=== PATIENT | female | born 1975 | race Caucasian/White ===

== ENCOUNTER 2017-04-12 07:34 | Day surgery (SDC) | payer OTHER ==
[2017-04-12] MEDS ORDERED: methylPREDNISolone NA SUCC 125 MG/2 ML VIAL IVPB ONE (09:00)
[2017-04-12] MEDS ORDERED: ACETAMINOPHEN 500 MG TABLET (FP) PO ONE (09:00)
[2017-04-12] MEDS ORDERED: diphenhydrAMINE HCL 25 MG CAPSULE (FP) PO ONE (09:00)
[2017-04-12 09:34] LABS: MCH 21.4 pg (25.7-33.7); MEAN PLT VOLUME 7.9 fl (7.5-11.1); PLATELET COUNT 368 K/MM3 (134-434); WHITE BLOOD COUNT 7.4 K/mm3 (4.0-10.0)
[2017-04-12 09:56] LABS: ALBUMIN 3.3 g/dl (3.4-5.0); ANION GAP 7 (8-16); CALCIUM 8.2 mg/dL (8.5-10.1); CO2 24 mmol/L (21-32); CREATININE 0.6 mg/dL (0.55-1.02); GLUCOSE,RANDOM 75 mg/dL (74-106); SGOT/AST 27 U/L (15-37); SGPT/ALT 28 U/L (12-78)
[2017-04-12 09:58] LABS: ALK PHOS 146 U/L (45-117); BILIRUBIN,TOTAL 0.2 mg/dL (0.2-1.0); TOT PROT 7.2 g/dl (6.4-8.2)
[2017-04-12] MEDS ORDERED: RITUXIMAB IVPB ONE (10:00)
[2017-04-12] MEDS ORDERED: SODIUM CHLORIDE IVPB ONE (10:00)
[2017-04-12] MEDS ORDERED: POTASSIUM CHLORIDE TABS 20 MEQ TABLET.ER (FP) PO ONE ×2 (12:00→16:15)
[2017-04-12 16:50] VITALS: BP 152/85; PULSE 105; TEMP 98.3
== END 2017-04-12 16:30 | disposition home or self-care (01) ==
LOC: JCHEMO 07:34 → J7W 08:14 → JCHEMO 16:30
PROVIDERS: ATTEND Specialist
DX: M05.89 Other rheumatoid arthritis with rheumatoid factor of multiple sites (principal); M35.00 Sjogren syndrome, unspecified; G90.09 Other idiopathic peripheral autonomic neuropathy
CPT/HCPCS: 36415; 80053; 85027; 96367; 96375; 96413; 96415; J9310

== ENCOUNTER 2017-12-05 10:40 | Day surgery (SDC) | payer OTHER ==
[~2017-12-05 10:40] MED LIST: ACETAMINOPHEN 500 MG TABLET (FP) PO ONE; DEXTROSE 5%-0.45% SALINE 1,000 ML IV SCH; diphenhydrAMINE HCL 25 MG CAPSULE (FP) PO ONE; methylPREDNISolone NA SUCC 125 MG/2 ML VIAL IVPB ONE
[2017-12-05] MEDS ORDERED: RITUXIMAB 1,000 MG in SODIUM CHLORIDE 400 ML IVPB ONE (11:00)
[2017-12-05 19:16] VITALS: TEMP 98.4
[2017-12-05 19:19] VITALS: BP 125/77; PULSE 93
== END 2017-12-05 17:05 | disposition home or self-care (01) ==
LOC: JINFUSION 10:40 → J7W 10:44 → JINFUSION 17:05
PROVIDERS: ATTEND Specialist
DX: M35.00 Sjogren syndrome, unspecified (principal); M05.89 Other rheumatoid arthritis with rheumatoid factor of multiple sites; G90.09 Other idiopathic peripheral autonomic neuropathy
CPT/HCPCS: 96361; 96367; 96375; 96413; 96415; J9310

== ENCOUNTER 2018-11-24 13:09 | Emergency (ER) | payer BC, OTHER | END 2018-11-24 18:19 | disposition home or self-care (01) | LOC: FER 13:09 ==

== ENCOUNTER 2020-01-30 10:13 | Emergency (ER) | payer BC, OTHER ==
--- OUTSIDE RECORDS SUMMARY | 2020-01-30 10:17 | XMS ---
:1975 Author Organization [facility] Support Name Relationship Address Phone UE Unavailable Unavailable Unavailable OLIVIA EVANS [address] ( [phone] [place] [address] Re-disclosure Warning The records that you are about to access may contain information from federally- assisted alcohol or drug abuse programs. If such information is present, then the following federally mandated warning applies: This information has been disclosed to you from records protected by federal confidentiality rules (42 CFR part 2). The federal rules prohibit you from making any further disclosure of this information unless further disclosure is expressly permitted by the written consent of the person to whom it pertains or as otherwise permitted by 42 CFR part 2. A general authorization for the release of medical or other information is NOT sufficient for this purpose. The Federal rules restrict any use of the information to criminally investigate or prosecute any alcohol or drug abuse patient.The records that you are about to access may contain highly sensitive health information, the redisclosure of which is protected by Article 27-F of the [facility] Public Health law. If you continue you may haveaccess to information: Regarding HIV / AIDS; Provided by facilities licensed or operated by the [facility] Office of Mental Health; or Provided by the [facility] Office for People With Developmental Disabilities. If such information is present, then the following [facility] mandated warning applies: This information has been disclosed to you from confidential records which are protected by state law. State law prohibits you from making any further disclosure of this information without the specific written consent of the person to whom it pertains, or as otherwise permitted by law. Any unauthorized further disclosure in violation of state law may result in a fine or penitentiary sentence or both. A general authorization for the release of medical or other information is NOT sufficient authorization for further disclosure. Insurance Providers Payer name Policy type Policy ID Covered Covered constitution party's Policy P jimi / Coverage constitution party ID relationship to Friedman Inf ormation type friedman BLUE CROSS [id number] SP [id number] OTHER 75 MEDICAID [id number] SP [id number] BLUE CROSS [id number] SP [id number] OTHER 75 BLUE CROSS [id number] SP [id number] SENIOR PLAN 75 MEDICARE [id number] SP [id number] Results ID Date Data Source [id number] 07/16/2019 12:00:00 AM EDT [facility] Name Value Range Interpretation Code Description Data Maddy rce(s) Supporting Document(s ) 2019-nCoV [facility] RNA XXX CONNIE+probe- Imp This lab was ordered by [facility] and re ported by [employer] Procedure
--- NOTE | 2020-01-30 10:41 | TELE ---
HPI Do you have fever,cough or shortness of breath?: Yes - General Reason For Visit: COVID 19 TEST Time Seen by Provider: 01/30/20 10:39 History Source: Patient Exam Limitations: Clinical Condition - History of Present Illness Associated Symptoms: reports: denies symptoms 01/30/20 10:40 Patient with no significant past medical history presents to [facility] for Covid testing status post traveling to [place] in a few days. Patient denies any symptoms. Denies cough, shortness of breath. Denies any other complaints Past History - Medical History Allergies/Adverse Reactions: Allergies Allergy/AdvReac Type Severity Reaction Status Date / Time No Known Allergies Allergy Verified 11/24/18 13:28 Home Medications: Ambulatory Orders Hydroxychloroquine So4 [Plaquenil -] 200 mg PO DAILY tablet 08/24/15 Methotrexate Sodium [Methotrexate] 15 mg PO DAILY tablet 08/24/15 Lisinopril [Prinivil -] 40 mg PO DAILY 11/24/18 Medrol - 11/24/18 Topiramate [Topamax] 25 mg PO BID 11/24/18 COPD: No HTN: Yes - Surgical History Cholecystectomy: Yes Gastric Stapling: No (GASTRIC SLEEVE) - Psycho-Social/Smoking History Smoking Status: No Smoking History: Never smoked Number of Cigarettes Smoked Daily: 0 Cigars Per Day: 0 Review of Systems - Review of Systems Able to Perform ROS?: Yes Limited Thai proficient: No Constitutional: No: Chills, Fever, Malaise HEENTM: No: Symptoms Reported, See HPI, Eye Pain, Blurred Vision, Tearing, Recent change in vision, Double Vision, Cataracts, Ear Pain, Ocular Prothesis, Ear Discharge, Nose Pain, Nose Congestion, Tinnitus, Nose Bleeding, Hearing Loss, Throat Pain, Throat Swelling, Mouth Pain, Dental Problems, Difficulty Swallowing, Mouth Swelling, Other Respiratory: No: Symptoms reported, See HPI, Cough, Orthopnea, Shortness of Breath, SOB with Exertion, SOB at Rest, Stridor, Wheezing, Productive cough, Hemoptysis, Other Cardiac (ROS): No: Symptoms Reported, See HPI, Chest Pain, Edema, Irregular Heart Rate, Lightheadedness, Palpitations, Syncope, Chest Tightness, Other ABD/GI: No: Symptoms Reported, Nausea, Vomiting Musculoskeletal: No: Symptoms Reported Integumentary: No: Symptoms Reported All Other Systems: Reviewed and Negative *Physical Exam - Physical Exam General Appearance: Yes: Nourished, Appropriately Dressed. No: Apparent Distress HEENT: positive: Normal ENT Inspection Respiratory/Chest: negative: Respiratory Distress, Accessory Muscle Use Musculoskeletal: positive: Normal Inspection Extremity: positive: Normal Inspection, Normal Range of Motion Integumentary: positive: Normal Color Neurologic: positive: Fully Oriented, Alert, Normal Mood/Affect, Normal Response - Medical Decision Making 01/30/20 10:39 Patient with no significant past medical history presents to [facility] for Covid testing status post traveling to [place] in a few days. Patient denies any symptoms. Denies cough, shortness of breath. Denies any other c omplaints Patient is asymptomatic at this time. Covid test ordered as per patient's request. Patient to go to [facility] drive-through testing center today for Covid testing. Patient stable for discharge Discharge Diagnosis at time of Disposition: Counseled about COVID-19 virus infection - Referrals Follow-up Referral(s): Whit Brady MD [Primary Care Provider] - - Patient Instructions - Discharge Disposition: HOME Condition at time of Disposition: Stable
== END 2020-01-30 10:41 | disposition home or self-care (01) ==
LOC: JVIRT 10:13
DX: Z03.818 Encounter for observation for suspected exposure to other biological agents ruled out (principal)
CPT/HCPCS: C9803; Q3014-GT; U0003

== ENCOUNTER 2020-08-17 09:00 | Inpatient (IN) | payer BC, OTHER ==
[2020-08-17 16:35] VITALS: BMI 36.6
[2020-09-14] MEDS ORDERED: BUPIVACAINE HCL 100 ML ONE (07:56)
[2020-09-14] MEDS ORDERED: BUPIVACAINE LIPOSOME/PF (EXPAREL) 266 MG/20 ML VIAL ONE (07:56)
[2020-09-14] MEDS ORDERED: MIDAZOLAM HCL 2 MG/2 ML SINGLE DOSE VIAL ONE ×3 (07:57→08:59)
[2020-09-14] MEDS ORDERED: ROCURONIUM BROMIDE 100 MG/10 ML VIAL ONE (08:59)
[2020-09-14] MEDS ORDERED: LIDOCAINE HCL/PF 2% SDV 5ML VIAL ONE (08:59)
[2020-09-14] MEDS ORDERED: DEXAMETHASONE SOD PHOSPHATE 4 MG/1 ML VIAL ONE (08:59)
[2020-09-14] MEDS ORDERED: fentaNYL CITRATE 250 MCG/5 ML VIAL ONE (08:59)
[2020-09-14] MEDS ORDERED: ONDANSETRON 4 MG/2 ML VIAL ONE ×2 (08:59→12:58)
[2020-09-14] MEDS ORDERED: PROPOFOL 20 ML ONE ×2 (08:59→10:38)
[2020-09-14] MEDS ORDERED: ceFAZolin 2 GRAM PREMIX BAG IVPB ONE (09:35)
[2020-09-14] MEDS ORDERED: ceFAZolin SODIUM 1 GM VIAL ONE (09:35)
[2020-09-14] MEDS ORDERED: ENOXAPARIN NA (PORCINE) 40 MG/0.4 ML DISP.SYRIN SQ SCH (10:00)
[2020-09-14] MEDS ORDERED: GLYCOPYRROLATE 0.2 MG/1 ML VIAL ONE (10:49)
[2020-09-14] MEDS ORDERED: NEOSTIGMINE METHYLSULFATE 0.5 MG/ML - 10 ML MDV ONE (10:49)
[2020-09-14] MEDS ORDERED: ONDANSETRON 4 MG/2 ML VIAL IVPUSH PRN ×2 (10:58→11:30)
[2020-09-14] MEDS ORDERED: oxyCODONE HCL 5 MG TABLET PO PRN ×4 (10:58→11:34)
[2020-09-14] MEDS ORDERED: LACTATED RINGERS SOLUTION 1,000 ML IV SCH (11:00)
[2020-09-14] MEDS ORDERED: ELECTROLYTE-148 SOLN 1,000 ML IV SCH (11:30)
[2020-09-14] MEDS ORDERED: IBUPROFEN 600 MG TABLET (FP) PO PRN (11:30)
[2020-09-14] MEDS ORDERED: ACETAMINOPHEN 325 MG TABLET (FP) PO PRN (11:37)
[2020-09-14] MEDS ORDERED: ceFAZolin 2 GRAM PREMIX BAG IVPB SCH (11:45)
[2020-09-14] MEDS ORDERED: ACETAMINOPHEN INJECTION 100 ML IVPB ONE (12:14)
[2020-09-14] MEDS ORDERED: HYDROmorphone HCl 2 MG/ML VIAL ONE (12:17)
[2020-09-14] MEDS: ACETAMINOPHEN 1000 MG/100 ML VIAL (NON FORMULARY) IVPB ONE ×2 (12:20→15:40)
[2020-09-14] MEDS: HYDROmorphone HCL CARPU-JECT 2 MG/1 ML DISP.SYRIN IVPUSH ONE ×3 (12:20→15:40)
[2020-09-14] MEDS ORDERED: HYDROmorphone HCl 2 MG/ML VIAL IVPUSH ONE (12:45)
[2020-09-14] MEDS: IBUPROFEN 800 MG/8 ML IJ IVPB PRN (14:46)
[2020-09-14] MEDS: ACETAMINOPHEN 325 MG TABLET (FP) PO SCH ×3 (15:40→23:25)
[2020-09-14] MEDS: ceFAZolin 2 GRAM PREMIX BAG IVPB SCH (17:58)
[2020-09-14] MEDS: HYDROXYCHLOROQUINE SO4 200 MG TABLET (FP) PO SCH (21:43)
[2020-09-14] MEDS: BUDESONIDE/FORMETEROL FUMARATE 160/4.5 mcg INHALER IH SCH (23:24)
[2020-09-15] MEDS: ceFAZolin 2 GRAM PREMIX BAG IVPB SCH ×2 (02:13→10:12)
[2020-09-15] MEDS: IBUPROFEN 800 MG/8 ML IJ IVPB PRN (03:12)
[2020-09-15] MEDS: ACETAMINOPHEN 325 MG TABLET (FP) PO SCH ×4 (06:26→23:35)
[2020-09-15 08:33] LABS: HEMATOCRIT 37.3 % (32.4-45.2); HEMOGLOBIN 12.2 GM/dL (10.7-15.3); MCH 26.4 pg (25.7-33.7); MCHC 32.7 g/dl (32.0-36.0); MEAN CELL VOLUME 80.8 fl (80-96); MEAN PLT VOLUME 8.2 fl (7.5-11.1); PLATELET COUNT 320 K/MM3 (134-434); RBC 4.61 M/mm3 (3.60-5.2); RDW 14.2 % (11.6-15.6); WHITE BLOOD COUNT 12.2 K/mm3 (4.0-10.0)
[2020-09-15 09:00] LABS: ALBUMIN 3.4 g/dl (3.4-5.0); BLOOD UREA NITROGEN 8.8 mg/dL (7-18); CALCIUM 8.9 mg/dL (8.5-10.1)
[2020-09-15 09:03] LABS: CREATININE 0.6 mg/dL (0.55-1.3)
[2020-09-15 09:05] LABS: BILIRUBIN,TOTAL 0.7 mg/dL (0.2-1); TOT PROT 7.1 g/dl (6.4-8.2)
[2020-09-15] MEDS: ENOXAPARIN NA (PORCINE) 40 MG/0.4 ML DISP.SYRIN SQ SCH (09:49)
[2020-09-15] MEDS: LISINOPRIL 20 MG TABLET PO SCH (09:50)
[2020-09-15] MEDS: amLODIPine BESYLATE 10 MG TABLET (FP) PO SCH (09:50)
[2020-09-15] MEDS: HYDROXYCHLOROQUINE SO4 200 MG TABLET (FP) PO SCH ×2 (09:50→21:29)
[2020-09-15] MEDS: SIMETHICONE 80 MG TAB.CHEW (FP) PO PRN ×2 (09:55→13:49)
[2020-09-15] MEDS: BUDESONIDE/FORMETEROL FUMARATE 160/4.5 mcg INHALER IH SCH ×2 (10:21→21:30)
[2020-09-15] MEDS ORDERED: BISACODYL 5 MG TABLET.DR (FP) PO ONE (11:36)
[2020-09-16] MEDS: ACETAMINOPHEN 325 MG TABLET (FP) PO SCH (05:41)
[2020-09-16] MEDS: HYDROXYCHLOROQUINE SO4 200 MG TABLET (FP) PO SCH (10:00)
[2020-09-16] MEDS: LISINOPRIL 20 MG TABLET PO SCH (10:00)
[2020-09-16] MEDS: ENOXAPARIN NA (PORCINE) 40 MG/0.4 ML DISP.SYRIN SQ SCH (10:00)
[2020-09-16] MEDS: amLODIPine BESYLATE 10 MG TABLET (FP) PO SCH (10:00)
[2020-09-16] MEDS: BUDESONIDE/FORMETEROL FUMARATE 160/4.5 mcg INHALER IH SCH (10:03)
[2020-09-16 10:14] VITALS: BP 120/80; PULSE 85; TEMP 97.6
== END 2020-09-16 10:40 | disposition home or self-care (01) | DRG 743 ==
LOC: J2C 09-14 04:31 → EDSTATUS 09-14 11:00 → J3W 09-14 14:08
PROVIDERS: ADMIT Obstetrics & Gynecology; ATTEND Obstetrics & Gynecology
PROC: 0UT70ZZ Resection of Bilateral Fallopian Tubes, Open Approach (ICD-10-PCS; 2020-09-14)
PROC: 0UT90ZL Resection of Uterus, Supracervical, Open Approach (ICD-10-PCS; principal; 2020-09-14 09:00)
DX: D25.0 Submucous leiomyoma of uterus (principal); N92.1 Excessive and frequent menstruation with irregular cycle; E66.9 Obesity, unspecified; Z68.36 Body mass index [BMI] 36.0-36.9, adult; I10 Essential (primary) hypertension; D64.9 Anemia, unspecified; M35.00 Sjogren syndrome, unspecified; M32.9 Systemic lupus erythematosus, unspecified; M06.9 Rheumatoid arthritis, unspecified
CPT/HCPCS: 36415; 80053; 84703; 85027; 86850; 86900; 86901; 88307-TC; 94760; J0131